=== PATIENT | male | born 1975 | race African-American/Black ===

== ENCOUNTER 2020-11-22 20:38 | Inpatient (IN) | payer OTHER ==
[~2020-11-22] VITALS: Ht 167.6 cm; Wt 97.4 kg
--- NOTE | ~2020-11-22 | OP ---
[address] [address] OPERATIVE REPORT Name: SANTIAGO CODY Room: [address] ADM IN M.R.#: [id number] Admission: 11/24/20 Attend Phys: Manuel Joy Discharge: Date of : 79 Report #: [id number] THIS REPORT FOR: cc: FAM - No family physician/PCP FAM - No family physician/PCP ~ Cooper Washburn DO DICTATED BY: Tien Dowd DO DATE OF SERVICE: 11/23/2020 PREOPERATIVE DIAGNOSIS: Perirectal abscess. POSTOPERATIVE DIAGNOSIS: Perirectal abscess. SURGEON: Cooper Washburn DO CO-SURGEON: Tien Dowd, PGY5 FORENSIC TOXICOLOGIST: ____, MS3 OPERATION PERFORMED: Anal exam under anesthesia and drainage of perirectal abscess. ANESTHESIA: General. ESTIMATED BLOOD LOSS: 20 mL. SPECIMEN: Cultures of abscess cavity. COMPLICATIONS: None. INDICATIONS: The patient is a 45-year-old male who presented to the Emergency Department with complaints of perirectal abscess and pain. He has a history of multiple perirectal abscesses in the past. A bedside drainage was attempted with an 18-gauge needle, was unsuccessful. He was informed of the risks and benefits of exam under anesthesia and drainage of abscess. He understood and decided to proceed with surgery. DESCRIPTION OF PROCEDURE: After informed consent was obtained, the patient was brought to the operating room and placed in supine position. SCDs were on and running. General anesthesia was administered with an LMA. The patient was then repositioned into lithotomy. He was prepped and draped in the usual sterile fashion. A surgical pause was held to confirm proper patient and procedure. An anal exam under anesthesia was performed. There was no obvious exterior opening to indicate a fistula. A lubricated finger was inserted [place] [address] OPERATIVE REPORT Name: ISABEL CODYEL Room: [address] IN [facility].#: [id number] Admission: 11/24/20 Attend Phys: Manuel Joy Discharge: Date of : 79 Report #: [id number] rectum. There was a bulge noted posteriorly and to the patient's right posterior there was a palpable weakness, just above the anal sphincter at this location; however, there was no clear drainage of pus or visible abnormality from this area. Homero speculum was inserted into the anus and this mucosa was inspected and appeared to be intact, although there was a palpable weakness there. The patient has had multiple drainages in the past as well as an unknown procedure for an anal fistula. This was some evidence of previous procedures. An 18-gauge needle was placed adjacent to the rectum on the patient's right medial buttock and advanced cephalad. A large amount, approximately 20 mL of purulent material was aspirated. An incision with an 11 blade was made over this tract. Dissection was carried back towards this purulent tract with a Ayana and with blunt dissection with a finger. The purulent material was sent for culture. There was no further drainage. There was no obvious connection between the exterior hole and the anal canal to suggest fistula; however, likely that an occult fistula was possible with the patient's history of recurrent abscesses and previous anal fistula. The rectum and the wound were thoroughly irrigated with hydrogen peroxide and saline. Bilateral pudendal nerve block and local injection around the incision with 0.5% Marcaine with epinephrine were performed. The wound was packed with 0.5% plain gauze, 4 x 4's, and ABDs were placed over the anus. The patient was returned to supine. He was emerged from anesthesia. All counts were correct. He was transferred to the PACU in stable condition. By: [id number] Washburn DO /nikolai
[2020-11-22 20:47] VITALS: BP 153/92
[2020-11-22] MEDS ORDERED: METFORMIN HCL500 M3 PO (20:53)
[2020-11-22] MEDS ORDERED: BLOOD PRESSURE (20:53)
[2020-11-22 21:16] LABS: HEMATOCRIT 38.6 % (42.0-52.0); HEMOGLOBIN 12.7 gm/dL (14.0-18.0); MCH 28.3 pg (26.0-34.0); MCHC 32.9 g/dL (28.0-37.0); MCV 86.2 fL (80.0-100.0); MPV 9.8 fl. (7.2-11.1); RBC 4.48 mil/uL (4.50-6.00); RDW-CV 17.1 % (10.5-14.5); WBC 15.3 thou/uL (4.0-11.0)
[2020-11-22 21:20] LABS: CREATININE 1.4 mg/dL (0.6-1.3); POTASSIUM 3.8 mmol/L (3.5-5.1)
[2020-11-22 21:25] LABS: ALBUMIN 2.8 g/dL (3.4-5.0); TOTAL BILIRUBIN 0.7 mg/dL (<0.1-1.0)
[2020-11-23] VITALS (7 sets, daily range): BP systolic 138–166; BP diastolic 91–109
--- NOTE | 2020-11-23 16:36 | EKG ---
[place] [address] ELECTROCARDIOGRAM REPORT Name: SANTIAGO CODY Room: [address] M.R.#: [id number] Admission: 11/23/20 Attend Phys: Martinez Valero Discharge: Date of : 79 Date of Service: 11/23/20 1139 Report #: [id number] THIS REPORT FOR: //name// [facility] Test Date: 2020-11-23 Test Time: 11:39:23 Pat Name: SANTIAGO CODY Department: Room: [address] Gender: M [employer] Supervisor: AT : 1975 Requested By: Cooper Washburn Order Number: [id number] Мария MD: Candido Morris Measurements Intervals [place] Rate: 103 P: 61 [place]: 134 QRS: -11 QRSD: 92 T: 28 QT: 361 QTc: 473 Interpretive Statements Sinus tachycardia Ventricular premature complex Consider right atrial enlargement Low voltage, extremity leads No previous ECG available for comparison Electronically Signed On 11-23-2020 16:36:12 CONCAVING MACHINE OPERATOR by Candido Morris [email or web address] <ELECTRONICALLY SIGNED> By: Candido Morris MD, [facility] 11/23/20 1636 1139 1139 Candido Morris MD, [facility] /EPI
[2020-11-24] VITALS: BP 131/89
[2020-11-24 04:00] VITALS: BP 133/87
[2020-11-24 07:19] LABS: ABSOLUTE EOSINOPHILS 0.2 thou/uL (0.0-0.7); ABSOLUTE LYMPHOCYTES 0.9 thou/uL (0.8-5.3); ABSOLUTE MONOCYTES 1.4 thou/uL (0.0-1.2); ABSOLUTE NEUTROPHILS 12.4 thou/uL (1.6-8.1); BASOPHILS 0.3 %; EOSINOPHILS 1.2 %; HEMATOCRIT 37.5 % (42.0-52.0); HEMOGLOBIN 12.1 gm/dL (14.0-18.0); MCH 28.1 pg (26.0-34.0); MCHC 32.2 g/dL (28.0-37.0); MCV 87.2 fL (80.0-100.0); MONOCYTES 9.6 %; NUCLEATED RBCS 0 /100WBC; PLATELET COUNT* 203 thou/uL (150-400); POLYS 82.9 %; RDW-CV 16.9 % (10.5-14.5); WBC 14.9 thou/uL (4.0-11.0)
[2020-11-24 07:27] LABS: CALCIUM 8.9 mg/dL (8.5-10.1); CREATININE 1.6 mg/dL (0.6-1.3); POTASSIUM 4.2 mmol/L (3.5-5.1)
[2020-11-24 08:05] VITALS: BP 132/86
[2020-11-24 12:05] VITALS: BP 134/78
[2020-11-24 17:50] VITALS: BP 128/72
[2020-11-24 20:00] VITALS: BP 137/81
[2020-11-25 00:34] VITALS: BP 135/80
[2020-11-25 04:00] VITALS: BP 131/81
[2020-11-25 04:15] LABS: HEMOGLOBIN 11.7 gm/dL (14.0-18.0); MCH 28.3 pg (26.0-34.0); MCHC 32.6 g/dL (28.0-37.0); MCV 86.8 fL (80.0-100.0); RBC 4.15 mil/uL (4.50-6.00); RDW-CV 16.4 % (10.5-14.5); WBC 17.1 thou/uL (4.0-11.0)
[2020-11-25 04:27] LABS: CALCIUM 8.8 mg/dL (8.5-10.1); CREATININE 1.5 mg/dL (0.6-1.3); MAGNESIUM 1.8 mg/dL (1.8-2.4); POTASSIUM 3.7 mmol/L (3.5-5.1)
[2020-11-25 08:10] VITALS: BP 140/93
[2020-11-25 16:33] VITALS: BP 114/79
[2020-11-25 21:10] VITALS: BP 128/83
[2020-11-26 08:09] VITALS: BP 137/89
[2020-11-26 13:05] LABS: HEMATOCRIT 36.7 % (42.0-52.0); HEMOGLOBIN 12.1 gm/dL (14.0-18.0); MCH 28.2 pg (26.0-34.0); MCHC 32.9 g/dL (28.0-37.0); MCV 85.7 fL (80.0-100.0); MPV 10.1 fl. (7.2-11.1); RBC 4.28 mil/uL (4.50-6.00); RDW-CV 16.6 % (10.5-14.5); WBC 19.2 thou/uL (4.0-11.0)
[2020-11-26 13:07] LABS: CALCIUM 8.8 mg/dL (8.5-10.1); CREATININE 1.4 mg/dL (0.6-1.3); POTASSIUM 3.5 mmol/L (3.5-5.1)
[2020-11-26 16:39] VITALS: BP 130/83
[2020-11-26 20:00] VITALS: BP 131/78
[2020-11-27 04:59] LABS: HEMATOCRIT 34.4 % (42.0-52.0); HEMOGLOBIN 11.3 gm/dL (14.0-18.0); MCH 28.1 pg (26.0-34.0); MCHC 32.8 g/dL (28.0-37.0); MCV 85.7 fL (80.0-100.0); MPV 10.5 fl. (7.2-11.1); RBC 4.01 mil/uL (4.50-6.00); RDW-CV 16.6 % (10.5-14.5); WBC 14.1 thou/uL (4.0-11.0)
[2020-11-27 05:30] LABS: CALCIUM 8.5 mg/dL (8.5-10.1); CREATININE 1.2 mg/dL (0.6-1.3); MAGNESIUM 1.9 mg/dL (1.8-2.4); POTASSIUM 3.2 mmol/L (3.5-5.1)
[2020-11-27 08:00] VITALS: BP 132/88
[2020-11-27 16:22] VITALS: BP 128/87
[2020-11-27 20:05] VITALS: BP 137/97
[2020-11-28 05:14] LABS: HEMATOCRIT 34.8 % (42.0-52.0); HEMOGLOBIN 11.7 gm/dL (14.0-18.0); MCH 28.6 pg (26.0-34.0); MCHC 33.6 g/dL (28.0-37.0); MCV 85.1 fL (80.0-100.0); MPV 9.9 fl. (7.2-11.1); RBC 4.09 mil/uL (4.50-6.00); RDW-CV 16.8 % (10.5-14.5); WBC 9.6 thou/uL (4.0-11.0)
[2020-11-28 05:35] LABS: ALBUMIN 2.1 g/dL (3.4-5.0); CREATININE 1.2 mg/dL (0.6-1.3); MAGNESIUM 1.9 mg/dL (1.8-2.4); POTASSIUM 4.1 mmol/L (3.5-5.1); TOTAL BILIRUBIN 0.2 mg/dL (<0.1-1.0); TOTAL PROTEIN 6.7 g/dL (6.4-8.2)
[2020-11-28] MEDS ORDERED: LASIX 40 MG TAB40 M1 PO (07:29)
[2020-11-28] MEDS ORDERED: NORVASC5 MG PO (07:29)
[2020-11-28] MEDS ORDERED: AMOX TR-K CLV1 EAC4 PO (07:29)
[2020-11-28] MEDS ORDERED: FLAGYL500 M1 PO (07:29)
[2020-11-28] MEDS ORDERED: OXYCODONE HCL 55 MG PO (07:29)
[2020-11-28] MEDS ORDERED: FLOMAX0.4 MG PO (07:29)
[2020-11-28] MEDS ORDERED: KLOR-CON 10 ER10 MEQ PO (07:29)
[2020-11-28 07:55] VITALS: BP 141/96
[2020-11-28 08:07] VITALS: BP 141/96
[2020-11-28 12:39] VITALS: BP 141/96
== END 2020-11-28 12:57 | disposition home or self-care (01) | DRG 394 ==
LOC: EDBD 20:38 → M.ERS 20:38 → M.TBA-ER 11-23 01:47 → M.3W 11-23 09:55
PROVIDERS: Internal Medicine; Personal Emergency Response Attendant; Surgery; ADMIT Internal Medicine; ATTEND Internal Medicine
PROC: 0D9P3ZZ Drainage of Rectum, Percutaneous Approach (ICD-10-PCS; principal; 2020-11-23)
DX: K62.89 Other specified diseases of anus and rectum (principal); K61.1 Rectal abscess; I13.0 Hypertensive heart and chronic kidney disease with heart failure and stage 1 through stage 4 chronic kidney disease, or unspecified chronic kidney disease; I50.9 Heart failure, unspecified; J45.909 Unspecified asthma, uncomplicated; F17.210 Nicotine dependence, cigarettes, uncomplicated; N18.9 Chronic kidney disease, unspecified; E11.22 Type 2 diabetes mellitus with diabetic chronic kidney disease; R33.9 Retention of urine, unspecified; Z20.822 Contact with and (suspected) exposure to COVID-19; Z79.84 Long term (current) use of oral hypoglycemic drugs; Z88.1 Allergy status to other antibiotic agents; Z79.899 Other long term (current) drug therapy; Z28.21 Immunization not carried out because of patient refusal